=== PATIENT | female | born 1995 | race African-American/Black ===

== ENCOUNTER 2018-12-06 20:45 | Emergency (ER) | payer OTHER ==
--- NOTE | 2018-12-06 22:17 | ED Physician Documentation ---
PD HPI NECK PAIN - Stated complaint Stated Complaint: NECK PX - Chief complaint Chief Complaint: Trauma Hd/Nk - History obtained from History obtained from: Patient - History of Present Illness Timing - onset: Today Timing - details: Abrupt onset (noted onset of mid to lower neck pain with ROM earlier today. No noted injury.) Location: Mid, Lower Quality: Pain, Spasm. No: Tearing Associated symptoms: No: Fever, Weakness, Numbness Worsened by: Movement, Palpation Contributing factors: No: Trauma Similar symptoms before: Has not had sx before Review of Systems Constitutional: denies: Fever, Myalgias Nose: denies: Rhinorrhea / runny nose, Congestion Throat: denies: Sore throat Respiratory: denies: Cough GI: denies: Abdominal Pain, Nausea, Vomiting : reports: Now EGA (36 weeks). denies: Vaginal bleeding Skin: denies: Rash, Lesions Neurologic: denies: Focal weakness, Numbness PD PAST MEDICAL HISTORY - Past Medical History Cardiovascular: None Respiratory: None Neuro: None Endocrine/Autoimmune: None - Present Medications Home Medications: Ambulatory Orders Medication Instructions Recorded Confirmed Methocarbamol [Robaxin] 500 mg PO Q6H PRN #10 tablet 12/06/18 - Allergies Allergies/Adverse Reactions: Allergies Allergy/AdvReac Type Severity Reaction Status Date / Time No Known Drug Allergies Allergy Verified 12/06/18 20:50 PD ED PE NORMAL - Vitals Vital signs reviewed: Yes - General General: Alert and oriented X 3, No acute distress (does seem uncomfortable with ROM of the lower neck. ), Well developed/nourished - HEENT HEENT: Pharynx benign - Neck Neck: Supple, no meningeal sign, No adenopathy, Other (lower neck is tender in paracervical muscles at level of C6/C7. No rash nor sores seen. ) - Cardiac Cardiac: RRR, No murmur - Respiratory Respiratory: Clear bilaterally - Abdomen Abdomen: Soft, Non tender, Other (gravid with fundus almost to xyphoid. Not tender.) - Derm Derm: Normal color, Warm and dry - Extremities Extremities: Normal ROM s pain, No edema, No calf tenderness / cord - Neuro Neuro: Alert and oriented X 3, No motor deficit, No sensory deficit, Normal speech Results - Vitals Vitals: Vital Signs - 24 hr 12/06/18 12/06/18 20:48 23:14 Temperature 36.2 C L Heart Rate 84 87 Respiratory 18 16 Rate Blood Pressure 132/78 H 112/84 H O2 Saturation 97 97 Oxygen O2 Source Room air Departure - Departure Disposition: 01 Home, Self Care Clinical Impression: Acute neck pain Condition: Stable Record reviewed to determine appropriate education?: Yes Instructions: ED Neck Pain No Trauma Follow-Up: GERALD Rodriguezarcadio Weber [Provider Group] Prescriptions: Methocarbamol [Robaxin] 500 mg PO Q6H PRN #10 tablet PRN Reason: Spasms Comments: Use Tylenol every 4-6 hours if needed for pains. You can add Robaxin muscle relaxant if needed and add the hydrocodone if needed for pains. Recheck if not improved over the next couple of days, or if associated other symptoms. Presume muscular/ligaments at this point. Discharge Date/Time: 12/06/18 23:29
[2018-12-06] MEDS ORDERED: HYDROcod/ACETAM 5/325 MG TABLET PO STA (22:51)
[2018-12-06] MEDS ORDERED: HYDROcod/ACET 5/325 Prepack 4 PO STA (22:51)
[2018-12-06] MEDS ORDERED: METHOCARBAMOL 500 MG TABLET PO STA (22:51)
[2018-12-06 23:18] VITALS: BP 112/84
== END 2018-12-06 23:29 | disposition home or self-care (01) ==
LOC: ED 20:45
DX: O26.893 Other specified pregnancy related conditions, third trimester (principal); M54.2 Cervicalgia; Z3A.36 36 weeks gestation of pregnancy
CPT/HCPCS: 99283; A9270

== ENCOUNTER 2018-12-28 11:53 | Day surgery (SDC) | payer OTHER ==
--- NOTE | 2018-12-28 12:03 | ED Physician Documentation ---
PD HPI FEMALE - Stated complaint Stated Complaint: FEMALE - History obtained from History obtained from: Patient - History of Present Illness Timing - onset: How many hours ago (1) Timing - duration: Hours (1) Timing - details: Abrupt onset Pain level max: 3 Pain level max: 2 Associated symptoms: Vaginal bleeding (Sustained a 3rd degree vaginal tear during vaginal today at an outpatient breathing center. Sent here for repair.). No: Fever, Abdominal pain, Back pain Similar symptoms before: Has not had sx before Review of Systems Constitutional: denies: Fever Respiratory: denies: Cough GI: denies: Vomiting Skin: denies: Rash Musculoskeletal: denies: Neck pain, Back pain PD PAST MEDICAL HISTORY - Past Medical History Cardiovascular: None Respiratory: Asthma Neuro: None Endocrine/Autoimmune: HyPOthyroidism Psych: Depression - Past Surgical History Past Surgical History: No - Present Medications Home Medications: Ambulatory Orders Medication Instructions Recorded Confirmed Fluoxetine HCl [Prozac] mg PO 12/28/18 Fluticasone/Salmeterol [Advair 1 each IH 12/28/18 100-50 Diskus] Levothyroxine [Synthroid] 25 mcg PO QDAC 12/28/18 12/28/18 - Allergies Allergies/Adverse Reactions: Allergies Allergy/AdvReac Type Severity Reaction Status Date / Time No Known Drug Allergies Allergy Verified 12/28/18 12:03 - Living Situation Living Situation: reports: With family Living Arrangement: reports: At home - Social History Does the pt smoke?: No Smoking Status: Never smoker Does the pt drink ETOH?: No Does the pt have substance abuse?: No - Family History Family history: reports: Non contributory - Immunizations Immunizations are current?: Yes - POLST Patient has POLST: No PD ED PE NORMAL - Vitals Vital signs reviewed: Yes - General General: Alert and oriented X 3, No acute distress, Well developed/nourished - HEENT HEENT: Moist mucous membranes - Neck Neck: Supple, no meningeal sign - Cardiac Cardiac: RRR, Strong equal pulses - Respiratory Respiratory: No respiratory distress, Clear bilaterally - Abdomen Abdomen: Normal bowel sounds, Soft, Non tender, Non distended - Female Female : Other (defer to OB) - Back Back: No CVA TTP - Derm Derm: Warm and dry - Extremities Extremities: No calf tenderness / cord - Neuro Neuro: Alert and oriented X 3 - Psych Psych: Normal mood, Normal affect Results - Vitals Vitals: Vital Signs - 24 hr 12/28/18 12/28/18 12/28/18 12:01 12:33 15:00 Temperature 36.8 C 36.4 C L Heart Rate 109 H 108 H 104 H Heart Rate [ Brachial] Respiratory 16 16 12 Rate Blood Pressure 116/75 118/76 92/50 L Blood Pressure [Right Brachial artery] O2 Saturation 99 99 97 12/28/18 12/28/18 12/28/18 15:05 15:15 15:31 Temperature 36.4 C L 36.4 C L 36.6 C Heart Rate 90 90 90 Heart Rate [ Brachial] Respiratory 13 14 16 Rate Blood Pressure 90/50 L 104/59 L 116/69 Blood Pressure [Right Brachial artery] O2 Saturation 97 98 98 12/28/18 15:59 Temperature 36.7 C Heart Rate Heart Rate [ 84 Brachial] Respiratory 18 Rate Blood Pressure Blood Pressure 112/63 [Right Brachial artery] O2 Saturation 100 Oxygen O2 Source Room air - Labs Labs: Laboratory Tests 12/28/18 12/28/18 12/28/18 12:25 12:25 12:25 WBC 16.5 H RBC 4.60 Hgb 12.3 Hct 37.3 MCV 81.1 MCH 26.7 L MCHC 33.0 RDW 13.6 Plt Count 169 MPV 9.9 Neut # (Auto) 13.6 H Lymph # (Auto) 1.7 [place] # (Auto) 1.1 H Eos # (Auto) 0.0 Baso # (Auto) 0.1 Absolute Nucleated RBC 0.00 Nucleated RBC % 0.0 Sodium 127 L Potassium 3.3 L Chloride 95 L Carbon Dioxide 18 L Anion Gap 14.0 H BUN < 5 L Creatinine 0.5 Estimated GFR (MDRD) 187 Glucose 146 H Calcium 9.2 Total Bilirubin 0.5 AST 39 ALT 18 Alkaline Phosphatase 110 Total Protein 6.3 L Albumin 2.8 L Globulin 3.5 Albumin/Globulin Ratio 0.8 L Lipase 30 Blood Type B POSITIVE Antibody Screen NEGATIVE PD MEDICAL DECISION MAKING - ED course Complexity details: reviewed results, re-evaluated patient, considered differential, d/w patient, d/w media sales consultant ED course: 23-year-old female with a third-degree vaginal laceration after vaginal delivery of a healthy baby boy. OB consulted, Dr. Degroot and will take to the operating room for repair. This document was made in part using voice recognition software. While efforts are made to proofread this document, sound alike and grammatical errors may occur. Departure - Departure Disposition: ED Transfer to [facility] Clinical Impression: Third degree perineal laceration during delivery Qualifiers: Third degree perineal laceration subtype: unspecified Qualified Code(s): O70.20 - Third degree perineal laceration during delivery, unspecified Condition: Good Discharge Date/Time: 12/28/18 13:47
[2018-12-28 12:40] LABS: BASOPHILS # (AUTO) 0.1 10^3/uL (0.0-0.1); BASOPHILS % (AUTO) 0.5 %; HGB - HEMOGLOBIN 12.3 g/dL (12.0-16.0); LYMPHOCYTES # (AUTO) 1.7 10^3/uL (1.5-3.5); LYMPHOCYTES % (AUTO) 10.5 %; MEAN CORPUSCULAR HEMOGLOBIN 26.7 pg (27.0-31.0); MEAN CORPUSCULAR VOLUME 81.1 fL (81.0-99.0); MEAN PLATELET VOLUME 9.9 fL (7.9-10.8); MONOCYTES # (AUTO) 1.1 10^3/uL (0.0-1.0); MONOCYTES % (AUTO) 6.7 %; NEUTROPHILS # (AUTO) 13.6 10^3/uL (1.5-6.6); NEUTROPHILS % (AUTO) 82.3 %; PLT - PLATELET COUNT 169 10^3/uL (130-450); RED CELL DISTRIBUTION WIDTH 13.6 % (12.0-15.0); WHITE BLOOD COUNT 16.5 x10^3/uL (4.8-10.8)
[2018-12-28] MEDS ORDERED: cefOXitin 2 GM in SODIUM CHLORIDE 0.9% MINIBAG 100 ML IV STA (12:47)
[2018-12-28 12:54] LABS: ALBUMIN 2.8 g/dL (3.2-5.5); ALBUMIN/GLOBULIN RATIO 0.8 (1.0-2.2); ALKALINE PHOSPHATASE 110 IU/L (42-121); ALT ALANINE AMINOTRANSFERASE 18 IU/L (10-60); AST ASPARTATE AMINOTRANSFERASE 39 IU/L (10-42); BILIRUBIN,TOTAL 0.5 mg/dL (0.2-1.0); BUN - BLOOD UREA NITROGEN < 5 mg/dL (6-20); CALCIUM 9.2 mg/dL (8.5-10.3); CARBON DIOXIDE - CO2 18 mmol/L (21-32); CHLORIDE 95 mmol/L (101-111); CREATININE 0.5 mg/dL (0.4-1.0); GFR - MDRD 187 (>89); GLUCOSE 146 mg/dL (70-100); LIPASE 30 U/L (22-51); SODIUM 127 mmol/L (135-145); TOTAL PROTEIN 6.3 g/dL (6.7-8.2)
--- NOTE | 2018-12-28 13:04 | ANESTHESIA ---
Pre-Anesthesia VS, & Labs - Diagnosis 3rd degree laceration - Procedure repair of 3rd degree vaginal tear Vital Signs: Temp Pulse Resp BP Pulse Ox 36.8 C 108 H 16 118/76 99 12/28/18 12:01 12/28/18 12:33 12/28/18 12:33 12/28/18 12:33 12/28/18 12:33 Height 5 ft 4 in Weight (kg) 68.039 kg Body Mass Index 25.7 - NPO Last Food Intake: 1130 - Is Patient ?: No (Delivered at 0915) - Lab Results Current Lab Results: Laboratory Tests 12/28/18 12:25: Sodium 127 L, Potassium 3.3 L, Chloride 95 L, Carbon Dioxide 18 L, Anion Gap 14.0 H, BUN < 5 L, Creatinine 0.5, Estimated GFR (MDRD) 187, Glucose 146 H, Calcium 9.2, Total Bilirubin 0.5, AST 39, ALT 18, Alkaline Phosphatase 110, Total Protein 6.3 L, Albumin 2.8 L, Globulin 3.5, Albumin/Globulin Ratio 0.8 L, Lipase 30 12/28/18 12:25: WBC 16.5 H, RBC 4.60, Hgb 12.3, Hct 37.3, MCV 81.1, MCH 26.7 L, MCHC 33.0, RDW 13.6, Plt Count 169, MPV 9.9, Neut # (Auto) 13.6 H, Lymph # (Auto) 1.7, Iron # (Auto) 1.1 H, Eos # (Auto) 0.0, Baso # (Auto) 0.1, Absolute Nucleated RBC 0.00, Nucleated RBC % 0.0 Fish Bones: 12/28/18 12:25 12/28/18 12:25 Home Medications and Allergies Home Medications: Ambulatory Orders Fluoxetine HCl [Prozac] mg PO 12/28/18 Fluticasone/Salmeterol [Advair 100-50 Diskus] 1 each IH 12/28/18 Levothyroxine [Synthroid] 25 mcg PO QDAC 12/28/18 Active Medications Cefoxitin Sodium 2 gm/ Sodium (Chloride) 100 mls @ 100 mls/hr IV ONCE STA Stop: 12/28/18 13:46 Fluoxetine HCl [Prozac] mg PO 12/28/18 Fluticasone/Salmeterol [Advair 100-50 Diskus] 1 each IH 12/28/18 Levothyroxine [Synthroid] 25 mcg PO QDAC 12/28/18 Allergies/Adverse Reactions: Allergies Allergy/AdvReac Type Severity Reaction Status Date / Time No Known Drug Allergies Allergy Verified 12/28/18 12:03 Anes History & Medical History - Anesthetic History Family history of Anesthesia Complications: Denies Family history of Malignant Hyperthermia: Denies - Medical History Cardiovascular: reports: None Pulmonary: reports: Asthma (well controlled) Gastrointestinal: reports: None Urinary: reports: None Neuro: reports: None Musculoskeletal: reports: None Endocrine/Autoimmune: reports: HyPOthyroidism Blood Disorders: reports: None Skin: reports: None Smoking Status: Never smoker Psychosocial: reports: Depression, Anxiety Exam General: Alert, Oriented x3, Cooperative, No acute distress Dental: WNL Mouth Openin Fingerbreadth Neck Mobility: Normal Mallampati classification: I Thyromental Distance: 4-6 cm Respiratory: Lungs clear, Normal breath sounds, No respiratory distress, No accessory muscle use Cardiovascular: Regular rate, Normal S1, Normal S2, No murmurs Mental/Cognitive Status: Alert/Oriented X3, Normal for patient Plan Anesthesia Type: Spinal (Advised patient spinal would be the superior option due to NPO status and recent . After consideration, patient opted for spinal anesthesia) Consent for Procedure(s) Verified and Reviewed: Yes Code Status: Attempt Resuscitation ASA classification: 2-Mild systemic disease Is this case an emergency?: Yes
[2018-12-28] MEDS ORDERED: BUPIVACAINE 0.25% PF 10 ML VIAL ONE (13:21)
[2018-12-28] MEDS ORDERED: LIDOCAINE 1%-EPI 1:100000 30 ML MDV ONE (13:21)
--- NOTE | 2018-12-28 13:28 | Discharge Plan ---
Discharge Plan Disposition: 01 Home, Self Care Condition: Good Diet: Regular Activity Restrictions: Activity as Tolerated Shower Restrictions: No Driving Restrictions: Yes (not for 24 hours) Additional Instructions or Follow Up instructions: 1. Do "sitz baths" 3 times daily for the next 2 days, 2 times daily for 3 days following. Then do one after each BM for 7 more days. This helps to keep the wound un-infected. Sit in a few inches if lukewarm bathwater. No soap or salts needed. No ointments needed. 2. Goal for bowel movements is soft and formed. Start stool softner (docusate) 2 capsules daily. If this is not enough to keep your stool soft then increase it to 4 capsules daily. 3. Follow up at [facility] in 1 week with me (Dr. Degroot) if you are having any problems with your wound, BMs, or with incontinence. Otherwise it is OK to skip this appointment and follow up with your midwives. 4. Go to the ER if you are having increasing pain, fevers, or other concerns. If you have incontinence to stool or to flatus (gas/farts) in the future, then I would NOT recommend having another vaginal delivery. Women who deliver vaginally who already have anal incontinence tend to have worse incontinence after a subsequent vaginal delivery. No Smoking: If you smoke, Please STOP! Call for help. Follow-up with: Anila Degroot MD [Provider Admit Priv/Credential] - 1 Week (Call on Sunday to make an appointment. )
[2018-12-28] MEDS ORDERED: LACTATED RINGERS 1,000 ML IV ONE (13:45)
[2018-12-28] MEDS ORDERED: fentaNYL 100 MCG/2 ML VIAL IVP ONE (14:00)
[2018-12-28] MEDS ORDERED: PROPOFOL 200 MG/20 ML VIAL IVP ONE (14:00)
[2018-12-28] MEDS ORDERED: MIDAZOLAM 2 MG/2 ML VIAL IVP ONE (14:00)
[2018-12-28] MEDS ORDERED: LIDOCAINE 1%-EPI 1:100000 30 ML MDV SUBQ ONE ×2 (14:13)
[2018-12-28] MEDS ORDERED: BUPIVACAINE 0.25% PF 30 ML VIAL SUBQ ONE ×2 (14:13)
--- NOTE | 2018-12-28 15:24 | OPERATIVE REPORT ---
Operative Report - General Procedure Date: 12/28/18 Planned Procedure: repair of 3rd degree perineal laceration Pre-Op Diagnosis: 3rd degree perineal laceration Procedure Performed: repair of 3rd degree perineal laceration Post Op Diagnosis: 3rd degree perineal laceration - Procedure Note Primary Surgeon: Zane Secondary Surgeon: cherelle Anesthesia Technique: Spinal Pathology: none IV Fluids (mL): 1,000 Estimated Blood Loss (mL): 5 Urine Output (mL): 200 Findings: 3rd degree lac Complications: none
--- NOTE | 2018-12-28 16:58 | HISTORY & PHYSICAL EXAMINATION ---
DATE OF SERVICE: 12/28/2018 Physician: Anila Degroot MD CHIEF COMPLAINT: Third-degree laceration. HISTORY OF PRESENT ILLNESS: Patient is a 23-year-old G1, now P1, who had a spontaneous vaginal delivery at 40 weeks and 4 days at the birthing center staffed by lay midwives. She delivered about a 6-1/2 pound baby that came quickly and she developed a third-degree laceration. time was at 9:16 a.m. Since the , she has had 4-5/10 vulvar pain. Otherwise, she is feeling well. The baby has breastfed. She has not had any heavy vaginal bleeding. She was able to urinate and was feeling like her bladder was empty. REVIEW OF SYSTEMS: No recent fevers or URI symptoms. PAST MEDICAL HISTORY: Hypothyroid, anxiety, depression, asthma: moderate, persistent without a current flare. MEDICATIONS 1. Levothyroxine. 2. Advair. 3. Prozac 20 mg. 4. vitamins. PAST SURGICAL HISTORY: Negative. SOCIAL HISTORY: No tobacco, alcohol or drug use. The patient is a [id number] parent. ALLERGIES: NO KNOWN DRUG ALLERGIES. FAMILY HISTORY: No anesthesia complications. PHYSICAL EXAMINATION VITAL SIGNS: Temperature 98.2, heart rate 109, blood pressure 116/75, respiration rate 16, O2 saturation 99% on room air. GENERAL: Patient is alert and pleasant, in no apparent distress. HEART: Regular rate and rhythm without clicks, rubs, gallops, or murmurs. CHEST: Lungs are clear to auscultation bilaterally. ABDOMEN: Soft, nontender, nondistended. Fundus firm, nontender, and at the umbilicus. EXTREMITIES: There is no lower extremity clubbing, cyanosis, edema, tenderness or cords. RECTAL: Reveals good sphincter tone A third-degree laceration is present involving the external anal sphincter. LABORATORY DATA: White count 16.5, hematocrit 37.3, platelets 169. ASSESSMENT AND PLAN: A 23-year-old G1, now P1 3-1/2 hours Status post spontaneous vaginal delivery at 40 weeks and 4 days, complicated by a third- degree perineal tear. Her and delivery course were uncomplicated other than this problem. She was group B strep negative. Repair of the laceration was recommended in the operating room in order to achieve the best possible outcome. The patient was offered a variety of anesthesia choices. I anticipate that she will be able to go home. TD: 12/28/2018 12:57 JT
[2018-12-28] MEDS ORDERED: IBUPROFEN 600 MG TABLET PO SCH (18:00)
[2018-12-28] MEDS ORDERED: IBUPROFEN 600 MG TABLET PO PRN (20:05)
[2018-12-28] MEDS ORDERED: WITCH HAZEL/GLYCERIN 1 EACH MED..PAD TOP PRN (20:07)
[2018-12-28] MEDS ORDERED: LACTATED RINGERS 1,000 ML IV SCH (21:00)
[2018-12-28] MEDS ORDERED: MORPHINE 2 MG/ML SYRINGE IVP SCH (21:00)
[2018-12-28] MEDS: ACETAMINOPHEN 500 MG TABLET PO PRN (21:17)
[2018-12-28] MEDS: ONDANSETRON 4 MG/2 ML VIAL IVP PRN ×2 (21:18→21:32)
[2018-12-28] MEDS: DOCUSATE SODIUM 100 MG CAPSULE PO SCH (21:18)
[2018-12-28] MEDS ORDERED: ONDANSETRON 4 MG/2 ML VIAL ONE (21:35)
[2018-12-28] MEDS ORDERED: SODIUM CHLORIDE FLUSH 0.9% 10 ML SYRINGE ONE (21:35)
--- NOTE | 2018-12-28 23:03 | PROVIDER PROGRESS NOTE ---
Subjective - Subjective Subjective: Pt was offered discharge when she became ambulatory. However she developed chills and 8/10 abdominal pain and so we opted to recover her for a longer period of time. She received a dose of morphine, tylenol, and ibuprofen. Her pain was improved following this. Pain in the abdomen is worse than the vulva. Pain is worse with . Pain is there all of the time. AVSS on q2h vitals. Abd soft, nt/nd. Fundus firm, NT, 3cm below U. Suspect that the pt's prostaglandins are causing the chilled sensation and that she has a vigorous uterine involution process. Will give a dose of toradol for next NSAID. Monitor. Otherwise doing well. Objective - Vital Signs/Intake & Output Vital Signs: Vital Signs x48h Temp Pulse Pulse Resp BP BP Pulse Ox 12/28/18 21:00 98.2 F 97 18 130/69 100 12/28/18 19:00 98.4 F 86 16 125/74 99 12/28/18 17:00 98.2 F 93 18 114/65 100 12/28/18 15:59 98.1 F 84 18 112/63 100 12/28/18 15:31 97.9 F 90 16 116/69 98 12/28/18 15:15 97.5 F L 90 14 104/59 L 98 12/28/18 15:05 97.5 F L 90 13 90/50 L 97 12/28/18 15:00 97.5 F L 104 H 12 92/50 L 97 Intake & Output: Intake & Output 12/25/18 12/26/18 12/27/18 12/28/18 23:59 23:59 23:59 23:59 Intake Total 100 Output Total 1200 Balance -1100 - Lab Results Fish Bones: 12/28/18 12:25 12/28/18 12:25 Other Labs: Lab Results x24hrs 12/28/18 12/28/18 12/28/18 Range/Units 12:25 12:25 12:25 WBC 16.5 H (4.8-10.8) x10^3/uL RBC 4.60 (4.20-5.40) 10^6/uL Hgb 12.3 (12.0-16.0) g/dL Hct 37.3 (37.0-47.0) % MCV 81.1 (81.0-99.0) fL MCH 26.7 L (27.0-31.0) pg MCHC 33.0 (32.0-36.0) g/dL RDW 13.6 (12.0-15.0) % Plt Count 169 (130-450) 10^3/uL MPV 9.9 (7.9-10.8) fL Neut # (Auto) 13.6 H (1.5-6.6) 10^3/uL Lymph # (Auto) 1.7 (1.5-3.5) 10^3/uL [place] # (Auto) 1.1 H (0.0-1.0) 10^3/uL Eos # (Auto) 0.0 (0.0-0.7) 10^3/uL Baso # (Auto) 0.1 (0.0-0.1) 10^3/uL Absolute Nucleated RBC 0.00 x10^3/uL Nucleated RBC % 0.0 /100WBC Sodium 127 L (135-145) mmol/L Potassium 3.3 L (3.5-5.0) mmol/L Chloride 95 L (101-111) mmol/L Carbon Dioxide 18 L (21-32) mmol/L Anion Gap 14.0 H (6-13) BUN < 5 L (6-20) mg/dL Creatinine 0.5 (0.4-1.0) mg/dL Estimated GFR (MDRD) 187 (>89) Glucose 146 H (70-100) mg/dL Calcium 9.2 (8.5-10.3) mg/dL Total Bilirubin 0.5 (0.2-1.0) mg/dL AST 39 (10-42) IU/L ALT 18 (10-60) IU/L Alkaline Phosphatase 110 (42-121) IU/L Total Protein 6.3 L (6.7-8.2) g/dL Albumin 2.8 L (3.2-5.5) g/dL Globulin 3.5 (2.1-4.2) g/dL Albumin/Globulin Ratio 0.8 L (1.0-2.2) Lipase 30 (22-51) U/L Blood Type B POSITIVE Antibody Screen NEGATIVE
[2018-12-29] MEDS ORDERED: SODIUM CHLORIDE FLUSH 0.9% 10 ML SYRINGE ONE ×2 (01:26→08:40)
--- NOTE | 2018-12-29 01:44 | OPERATIVE REPORT ---
DATE OF SERVICE: 12/28/2018 Physician: Anila Degroot MD PREOPERATIVE DIAGNOSES 1. Status post spontaneous vaginal delivery outside the hospital. 2. Third-degree perineal laceration. POSTOPERATIVE DIAGNOSES 1. Status post spontaneous vaginal delivery outside the hospital. 2. Third-degree perineal laceration. PROCEDURE: Repair of third-degree laceration. SURGEON: Anila Degroot MD SPORTS INFORMATION DIRECTOR: None. ANESTHESIA: Spinal. ESTIMATED BLOOD LOSS: 5 mL URINE OUTPUT: 200 mL INTRAVENOUS FLUIDS: One liter. COUNTS: Correct x2. COMPLICATIONS: None apparent. DISPOSITION: Stable to the recovery room. PROPHYLAXIS: Cefoxitin 2 g IV. SCDs to bilateral lower extremities. SPECIMENS: None. DESCRIPTION OF PROCEDURE: The patient was brought to the operating room, where she underwent spinal anesthesia. She was placed in low lithotomy in [facility]. She was carefully prepped and the n draped in the usual sterile fashion. The bladder was in-and-out catheterized. A careful examinati on revealed intact rectal mucosa. The external anal sphincter was disrupted. The internal anal sphi ncter was disrupted 3 cm distal to the anus. The patient did have 365 degrees of good rectal tone co nsistent with a mostly intact internal anal sphincter. The entire area was numbed with 0.25% Marcaine combined with 1% lidocaine with epinephrine; 20 mL wer e used. The external anal sphincter was identified and grasped with Allis clamps. The external anal sphincter was repaired end to end using 3-0 Vicryl sutures. A total of 5 sutures were placed. Good approximation was noted. The internal anal sphincter was disrupted cranially to that area. This wa s run with 3-0 Vicryl. The majority of this repair was done with the left finger inside the rectum t o confirm no placement of sutures through the rectal mucosa. The remainder of the patient's obstetric laceration was repaired with running sutures of 2-0 Vicryl. The bulbocavernous muscles and the transverse perineal muscles were each reapproximated with their o wn interrupted stitches. The blood and Betadine were washed from her body, after which she was retur connie to the supine position and sent to the recovery room. The patient delivered at a center, a nd she prefers to go home. She will be able to go home as soon as she ambulates. TD: 12/28/2018 15:33
[2018-12-29] MEDS: KETOROLAC 30 MG/ML VIAL IVP SCH ×2 (01:47→08:35)
[2018-12-29] MEDS: ACETAMINOPHEN 500 MG TABLET PO PRN (05:42)
[2018-12-29] MEDS: DOCUSATE SODIUM 100 MG CAPSULE PO SCH (08:35)
[2018-12-29 08:40] VITALS: BP 120/61
--- NOTE | 2018-12-30 07:35 | Labor Flowsheet ---
Labor Flowsheet Datetime Report Generated by CPN: 12/30/2018 07:35 Datetime: 12/29/2018 13:44 VITAL SIGNS NBP Sys/Syl/Mean (mmHg): 69 : 47 Pulse: 142 Respirations: 50 SpO2 (%): 100 Temperature (C): 37.0
== END 2018-12-29 10:30 | disposition home or self-care (01) ==
LOC: ED 11:53 → SDS 13:00 → ICU 14:42 → OBS 15:05 → FBP 20:50 → SDS 12-29 10:30
PROVIDERS: ATTEND Obstetrics & Gynecology
PROC: 0DQR0ZZ Repair Anal Sphincter, Open Approach (ICD-10-PCS; principal; 2018-12-28 13:30)
DX: O70.23 Third degree perineal laceration during delivery, IIIc (principal); J45.909 Unspecified asthma, uncomplicated; O99.345 Other mental disorders complicating the puerperium; F41.9 Anxiety disorder, unspecified; O99.53 Diseases of the respiratory system complicating the puerperium; O99.285 Endocrine, nutritional and metabolic diseases complicating the puerperium; E03.9 Hypothyroidism, unspecified
CPT/HCPCS: 36415; 59300; 80053; 83690; 85025; 86850; 86900; 86901; 99283; 99284; A9270; J7120

== ENCOUNTER 2020-08-06 14:35 | Outpatient (CLI) | payer OTHER ==
[2020-08-06 16:15] LABS: BILIRUBIN,URINE NEGATIVE (NEGATIVE); GLUCOSE, URINE (UA) NEGATIVE (NEGATIVE); KETONES,URINE (UA) NEGATIVE (NEGATIVE); LEUKOCYTE ESTERASE, URINE NEGATIVE (NEGATIVE); NITRITE,URINE NEGATIVE (NEGATIVE); OCCULT BLOOD,URINE NEGATIVE (NEGATIVE); PROTEIN,URINE NEGATIVE (NEGATIVE); UROBILINOGEN,URINE 0.2 (NORMAL) E.U./dL (NORMAL)
[2020-08-06 16:25] LABS: BACTERIA,URINE Rare /HPF (None Seen); CLARITY,URINE CLEAR (CLEAR); RBC,URINE 0-5 /HPF (0-5); SQUAMOUS EPITHELIAL CELL,UR MANY Squamous (<= Few)
== END 2020-08-06 23:59 | disposition home or self-care (01) ==
LOC: LAB.R 14:35
PROVIDERS: ATTEND Obstetrics & Gynecology
DX: Z32.01 Encounter for pregnancy test, result positive (principal)
CPT/HCPCS: 81001; 87086

== ENCOUNTER 2020-08-08 03:30 | Emergency (ER) | payer OTHER ==
--- NOTE | 2020-08-08 03:36 | ED Physician Documentation ---
PD HPI SYNCOPE - Stated complaint Stated Complaint: FAINT - History obtained from History obtained from: Patient - History of Present Illness Witnessed: Unwitnessed Timing - onset: Enter time (02:00) Duration: Seconds Preceding symptoms: Light headed Contributing factors: Other (4 days n/v/d) Injury occurred: None Similar symptoms before: Has not had sx before Recently seen: Not recently seen - Additional information Additional information: patient is approximately 4 weeks , c/o 4 days of nausea, vomiting, and watery diarrhea. This morning at approximately 2 AM she was walking in her house, closed window blinds and upon turning around, had sudden onset lightheadedness immediately followed by syncope. She woke up on floor, she estimates brief LOC (seconds) and denies injury. However, she continues to feel lightheaded and dizzy with standing, ambulation. Does not describe vertigo spinning sensation. Also has mild left lower back pain. Review of Systems Constitutional: denies: Fever, Chills, Fatigue, Sweats PD PAST MEDICAL HISTORY - Past Medical History Cardiovascular: None Respiratory: Asthma Neuro: None Endocrine/Autoimmune: HyPOthyroidism GI: None : None Psych: Depression Musculoskeletal: None Derm: None - Past Surgical History Past Surgical History: No - Present Medications Home Medications: Ambulatory Orders Medication Instructions Recorded Confirmed Fluoxetine HCl [Prozac] mg PO 12/28/18 Fluticasone/Salmeterol [Advair 1 each IH 12/28/18 100-50 Diskus] Levothyroxine [Synthroid] 25 mcg PO QDAC 12/28/18 08/08/20 Metoclopramide [Reglan] 10 mg PO Q6H PRN #14 tablet 08/08/20 - Allergies Allergies/Adverse Reactions: Allergies Allergy/AdvReac Type Severity Reaction Status Date / Time No Known Drug Allergies Allergy Verified 12/28/18 12:03 - Social History Does the pt smoke?: No Smoking Status: Never smoker Does the pt drink ETOH?: No Does the pt have substance abuse?: No - Immunizations Immunizations are current?: Yes - POLST Patient has POLST: No PD ED PE NORMAL - Vitals Vital signs reviewed: Yes - General General: Alert and oriented X 3, No acute distress, Well developed/nourished - HEENT HEENT: PERRL, EOMI, Moist mucous membranes - Neck Neck: Supple, no meningeal sign - Cardiac Cardiac: RRR, No murmur, No gallop, No rub - Respiratory Respiratory: No respiratory distress, Clear bilaterally - Abdomen Abdomen: Soft, Non tender - Back Back: No CVA TTP, No spinal TTP - Derm Derm: Normal color, Warm and dry - Neuro Neuro: Alert and oriented X 3, 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, No motor deficit, No sensory deficit, Normal speech Eye Opening: Spontaneous Motor: Obeys Commands Verbal: Oriented GCS Score: 15 Results - Vitals Vitals: Vital Signs - 24 hr 08/08/20 08/08/20 08/08/20 03:40 03:43 04:34 Temperature 36.6 C 36.6 C 36.6 C Heart Rate 86 86 92 Respiratory 20 20 18 Rate Blood Pressure 135/104 H 135/104 H 110/68 O2 Saturation 100 100 98 08/08/20 08/08/20 06:00 06:40 Temperature 36.5 C 36.5 C Heart Rate 89 88 Respiratory 17 18 Rate Blood Pressure 112/69 114/70 O2 Saturation 100 100 Oxygen O2 Source Room air - Labs Labs: Laboratory Tests 08/08/20 08/08/20 08/08/20 03:41 04:13 04:13 WBC 6.3 RBC 4.93 Hgb 13.3 Hct 41.2 MCV 83.6 MCH 27.0 MCHC 32.3 RDW 13.7 Plt Count 243 MPV 10.0 Neut # (Auto) 2.4 Lymph # (Auto) 3.0 [place] # (Auto) 0.6 Eos # (Auto) 0.2 Baso # (Auto) 0.0 Absolute Nucleated RBC 0.00 Nucleated RBC % 0.0 Sodium 135 Potassium 3.5 Chloride 104 Carbon Dioxide 24 Anion Gap 7.0 BUN 7 Creatinine 0.7 Estimated GFR (MDRD) 125 Glucose 113 H Calcium 9.0 Total Bilirubin 0.6 AST 17 ALT 18 Alkaline Phosphatase 66 Total Protein 7.2 Albumin 4.0 Globulin 3.2 Albumin/Globulin Ratio 1.3 Lipase 31 TSH HCG, Quant Urine Color YELLOW Urine Clarity CLEAR Urine pH 8.0 H Ur Specific [place] 1.015 Urine Protein NEGATIVE Urine Glucose (UA) NEGATIVE Urine Ketones NEGATIVE Urine Occult Blood NEGATIVE Urine Nitrite NEGATIVE Urine Bilirubin NEGATIVE Urine Urobilinogen 0.2 (NORMAL) Ur Leukocyte Esterase NEGATIVE Ur Microscopic Review NOT INDICATED Urine Culture Comments NOT INDICATED 08/08/20 08/08/20 04:13 04:13 WBC RBC Hgb Hct MCV MCH MCHC RDW Plt Count MPV Neut # (Auto) Lymph # (Auto) [place] # (Auto) Eos # (Auto) Baso # (Auto) Absolute Nucleated RBC Nucleated RBC % Sodium Potassium Chloride Carbon Dioxide Anion Gap BUN Creatinine Estimated GFR (MDRD) Glucose Calcium Total Bilirubin AST ALT Alkaline Phosphatase Total Protein Albumin Globulin Albumin/Globulin Ratio Lipase TSH 4.14 HCG, Quant 46259.00 Urine Color Urine Clarity Urine pH Ur Specific [place] Urine Protein Urine Glucose (UA) Urine Ketones Urine Occult Blood Urine Nitrite Urine Bilirubin Urine Urobilinogen Ur Leukocyte Esterase Ur Microscopic Review Urine Culture Comments - Rads (name of study) 1st trimester US Radiology: Prelim report reviewed, See rad report PD MEDICAL DECISION MAKING - ED course Complexity details: reviewed results, re-evaluated patient, considered differential, d/w patient ED course: On reevaluation after 1 liter NS IV and reglan 10 mg IV, patient reports feeling much improved. She was able to ambulate to/from bathroom without difficulty or assistance and did not have symptoms such as lightheadedness, nausea, dizziness. Blood tests are reassuring as is the 1st trimester US. 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
[2020-08-08] MEDS ORDERED: SODIUM CHLORIDE 0.9% 1,000 ML IV STA (03:52)
[2020-08-08] MEDS ORDERED: METOCLOPRAMIDE 10 MG/2 ML VIAL IVP STA (03:53)
[2020-08-08 04:09] LABS: BILIRUBIN,URINE NEGATIVE (NEGATIVE); GLUCOSE, URINE (UA) NEGATIVE (NEGATIVE); KETONES,URINE (UA) NEGATIVE (NEGATIVE); LEUKOCYTE ESTERASE, URINE NEGATIVE (NEGATIVE); NITRITE,URINE NEGATIVE (NEGATIVE); OCCULT BLOOD,URINE NEGATIVE (NEGATIVE); PROTEIN,URINE NEGATIVE (NEGATIVE); UROBILINOGEN,URINE 0.2 (NORMAL) E.U./dL (NORMAL)
[2020-08-08 04:17] LABS: CLARITY,URINE CLEAR (CLEAR)
[2020-08-08 04:21] LABS: BASOPHILS % (AUTO) 0.5 %; EOSINOPHILS # (AUTO) 0.2 10^3/uL (0.0-0.7); EOSINOPHILS % (AUTO) 3.8 %; HGB - HEMOGLOBIN 13.3 g/dL (12.0-16.0); LYMPHOCYTES % (AUTO) 46.8 %; MEAN CORPUSCULAR HGB CONC 32.3 g/dL (32.0-36.0); MEAN CORPUSCULAR VOLUME 83.6 fL (81.0-99.0); MONOCYTES # (AUTO) 0.6 10^3/uL (0.0-1.0); MONOCYTES % (AUTO) 10.2 %; NEUTROPHILS # (AUTO) 2.4 10^3/uL (1.5-6.6); NEUTROPHILS % (AUTO) 38.5 %; PLT - PLATELET COUNT 243 10^3/uL (130-450); RED BLOOD COUNT 4.93 10^6/uL (4.20-5.40); RED CELL DISTRIBUTION WIDTH 13.7 % (12.0-15.0); WHITE BLOOD COUNT 6.3 x10^3/uL (4.8-10.8)
[2020-08-08 04:33] LABS: ALBUMIN/GLOBULIN RATIO 1.3 (1.0-2.2); BILIRUBIN,TOTAL 0.6 mg/dL (0.2-1.0); CREATININE 0.7 mg/dL (0.4-1.0); TOTAL PROTEIN 7.2 g/dL (6.7-8.2)
[2020-08-08 06:41] VITALS: BP 114/70
--- NOTE | 2020-08-08 09:34 | Ultrasound Report ---
PROCEDURE: OB First Trimester INDICATIONS: , syncope OUTSIDE/PRIOR DATING DATA: Last menstrual period (LMP): 07/08/2020. LMP-based estimated date of delivery (DON): 04/14/2021. First dating scan (date and location): 08/08/2020. Estimated date of delivery (DON) from first dating scan: Estimated 04/06/2021 based on MGSD. TECHNIQUE: Real-time scanning was performed of the fetus and maternal pelvic organs, with image documentation. COMPARISON: None. FINDINGS: Embryo: Intrauterine gestational sac. Mean gestational sac diameter 0.82 cm, corresponding to estima stacey gestational age of 5 weeks 4 days. pole is not seen at this time. Yolk sac is present. Ques tion of cardiac motion. heart rate cannot be obtained. Measurement variability in dating: +/- 4 weeks by LMP, +/- 7 days by mean sac diameter (use before 6 weeks gestation if crown-rump length not able to be measured), +/- 5 days by crown-rump length (6-12 weeks gestation). Maternal organs: Ovaries are within normal limits. Limited images through the kidneys demonstrate n o hydronephrosis. IMPRESSION: 1. Intrauterine gestational sac with estimated gestational age of 5 weeks 4 days. Normal yolk sac. Cr own-rump length cannot be measured at this time. -Short-term interval follow-up OB ultrasound could be performed to document crown-rump length and to confirm viability. 2. Normal sonographic appearance of the ovaries. 3. No perigestational hemorrhage. This report is concordant with the overnight pulmonary interpretation. Reviewed by: Giancarlo Gibbs MD on 08/08/2020 8:[address] [facility] Approved by: Giancarlo Gibbs MD on 08/08/2020 8:[address] [facility] Station ID: [id number]
--- NOTE | 2020-08-08 09:35 | Ultrasound Report ---
PROCEDURE: OB First Trimester INDICATIONS: , syncope OUTSIDE/PRIOR DATING DATA: Last menstrual period (LMP): 07/08/2020. LMP-based estimated date of delivery (DON): 04/14/2021. First dating scan (date and location): 08/08/2020. Estimated date of delivery (DON) from first dating scan: Estimated 04/06/2021 based on MGSD. TECHNIQUE: Real-time scanning was performed of the fetus and maternal pelvic organs, with image documentation. COMPARISON: None. FINDINGS: Embryo: Intrauterine gestational sac. Mean gestational sac diameter 0.82 cm, corresponding to estima stacey gestational age of 5 weeks 4 days. pole is not seen at this time. Yolk sac is present. Ques tion of cardiac motion. heart rate cannot be obtained. Measurement variability in dating: +/- 4 weeks by LMP, +/- 7 days by mean sac diameter (use before 6 weeks gestation if crown-rump length not able to be measured), +/- 5 days by crown-rump length (6-12 weeks gestation). Maternal organs: Ovaries are within normal limits. Limited images through the kidneys demonstrate n o hydronephrosis. IMPRESSION: 1. Intrauterine gestational sac with estimated gestational age of 5 weeks 4 days. Normal yolk sac. Cr own-rump length cannot be measured at this time. -Short-term interval follow-up OB ultrasound could be performed to document crown-rump length and to confirm viability. 2. Normal sonographic appearance of the ovaries. 3. No perigestational hemorrhage. This report is concordant with the overnight pulmonary interpretation. Reviewed by: Giancarlo Gibbs MD on 08/08/2020 8:33 AM [facility] Approved by: Giancarlo Gibbs MD on 08/08/2020 8:33 AM [facility] Station ID: [id number]
== END 2020-08-08 06:40 | disposition home or self-care (01) ==
LOC: ED 03:30
DX: O21.0 Mild hyperemesis gravidarum (principal); O21.8 Other vomiting complicating pregnancy; R55 Syncope and collapse; Z3A.01 Less than 8 weeks gestation of pregnancy
CPT/HCPCS: 36415; 76801; 76817; 81003; 83690; 84702; 96361; 96374; 99284; J2765; 80053; 81001; 84443; 85025; 87086

== ENCOUNTER 2020-08-10 16:47 | Outpatient (CLI) | payer OTHER | END 2020-08-10 16:48 | disposition home or self-care (01) | LOC: LAB.N 16:47 | PROVIDERS: ATTEND Obstetrics & Gynecology | DX: Z32.01 Encounter for pregnancy test, result positive (principal) | CPT/HCPCS: 36415; 84702 ==

== ENCOUNTER 2020-08-12 17:27 | Outpatient (CLI) | payer OTHER | END 2020-08-12 17:28 | disposition home or self-care (01) | LOC: LAB.N 17:27 | PROVIDERS: ATTEND Obstetrics & Gynecology | DX: Z53.9 Procedure and treatment not carried out, unspecified reason (principal) ==

== ENCOUNTER 2020-08-15 18:16 | Outpatient (CLI) | payer OTHER | END 2020-08-15 18:17 | disposition home or self-care (01) | LOC: LAB 18:16 | DX: Z34.01 Encounter for supervision of normal first pregnancy, first trimester (principal) | CPT/HCPCS: 84702 ==

== ENCOUNTER 2020-08-17 07:54 | Outpatient (CLI) | payer OTHER ==
--- NOTE | 2020-08-17 14:49 | Ultrasound Report ---
PROCEDURE: OB First Trimester w/TV INDICATIONS: TEST POS OUTSIDE/PRIOR DATING DATA: Last menstrual period (LMP): 07/08/2020. LMP-based estimated date of delivery (DON): 04/14/2021. First dating scan (date and location): 08/17/2020. Estimated date of delivery (DON) from first dating scan: 04/10/2021. TECHNIQUE: Real-time scanning was performed of the fetus and maternal pelvic organs, with image documentation. Endovaginal scanning was also performed to better visualize the fetus and maternal ovaries. COMPARISON: 08/08/2020 FINDINGS: Embryo: There is a single living intrauterine gestation with an estimated sonographic gestational ag e of approximately 6 weeks and 2 days based off crown-rump length measurement of 0.5 cm. Estimated ge stational age of 6 weeks and 6 days based off mean gestational sac diameter 1.9 cm. A pole and yolk sac are visualized. cardiac activity is visualized with heart rate measuring 123 bpm . There is a small perigestational hemorrhage measuring 1.0 x 0.6 x 1.1 cm. Measurement variability in dating: +/- 4 weeks by LMP, +/- 7 days by mean sac diameter (use before 6 weeks gestation if crown-rump length not able to be measured), +/- 5 days by crown-rump length (6-12 weeks gestation). Maternal organs: Ovaries demonstrate presence of a left corpus luteal cyst measuring 2.3 x 1.9 x 1.9 cm. Incidental note of intramural uterine fibroid measuring 2.7 x 2.6 x 3.1 cm. Limited images thro ugh the kidneys demonstrate no hydronephrosis. IMPRESSION: 1. Single living intrauterine gestation with estimated sonographic gestational age of approximately 6 weeks and 2 days based off crown-rump length measurement. Recommend routine second trimester a natomic screening survey. 2. Small perigestational hemorrhage measuring 1.0 x 0.6 x 1.1 cm. 3. Uterine fibroid measuring 2.7 cm x 2.6 cm x 3.1 cm. Reviewed by: Michael Jackson MD on 08/17/2020 2:47 PM PST Approved by: Michael Jackson MD on 08/17/2020 2:47 PM PST Station ID: [id number]
== END 2020-08-17 07:55 | disposition home or self-care (01) ==
LOC: DI 07:54
PROVIDERS: ATTEND Obstetrics & Gynecology
DX: Z32.01 Encounter for pregnancy test, result positive (principal)